=== PATIENT | female | born 1985 | race African-American/Black ===

== ENCOUNTER 2018-10-22 23:36 | Outpatient (CLI) | payer OTHER | END 2018-10-22 23:53 | disposition short-term general hospital (02) | LOC: AMB 23:36 | DX: O62.9 Abnormality of forces of labor, unspecified (principal); O42.02 Full-term premature rupture of membranes, onset of labor within 24 hours of rupture; Z3A.39 39 weeks gestation of pregnancy | CPT/HCPCS: A0425; A0427 ==

== ENCOUNTER 2022-01-04 18:52 | Emergency (ER) | payer OTHER ==
[~2022-01-04] VITALS: Ht 154.9 cm; Wt 97.2 kg
[2022-01-04 20:50] VITALS: BP 147/86; TEMP 97.4
== END 2022-01-04 20:50 | disposition home or self-care (01) ==
LOC: ED 18:52
DX: N63.20 Unspecified lump in the left breast, unspecified quadrant (principal)
CPT/HCPCS: 81025; 99283

== ENCOUNTER 2022-01-05 20:41 | Emergency (ER) | payer OTHER ==
[~2022-01-05] VITALS: Ht 154.9 cm; Wt 97.1 kg
[2022-01-05 22:04] VITALS: BP 120/81; TEMP 98.3
== END 2022-01-05 22:04 | disposition home or self-care (01) ==
LOC: ED 20:41
DX: F41.8 Other specified anxiety disorders (principal)
CPT/HCPCS: 99283

== ENCOUNTER 2022-11-26 21:28 | Emergency (ER) | payer OTHER ==
[~2022-11-26] VITALS: Ht 154.9 cm; Wt 72.6 kg
[2022-11-26 21:30] VITALS: BP 127/68; TEMP 97.8
== END 2022-11-26 22:05 | disposition left against medical advice (07) ==
LOC: ED 21:28
DX: R42 Dizziness and giddiness (principal); F41.9 Anxiety disorder, unspecified
CPT/HCPCS: 99281